=== PATIENT | female | born 2000 | race Caucasian/White ===

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

== ENCOUNTER → 2022-03-22 | Emergency (ER) | payer OTHER ==
[~2022-03-22] VITALS: Ht 167.6 cm; Wt 77.0 kg
[~2022-03-22] MED LIST changes: +PRENATA3 PO; +TAM75CAP PO; +ZOFRAN4 MG/TAB PO
[2022-03-22 23:30] VITALS: BP 96/58
== END | disposition home or self-care (01) ==
LOC: ED 21:46
DX: J10.1 Influenza due to other identified influenza virus with other respiratory manifestations (principal)

== ENCOUNTER 2022-04-20 16:51 | Emergency (ER) | payer OTHER ==
[~2022-04-20] VITALS: Ht 167.6 cm; Wt 77.1 kg
[2022-04-20 18:24] LABS: URINE BILIRUBIN - DIPSTICK NEGATIVE (NEGATIVE); URINE BLOOD DIPSTICK LARGE (NEGATIVE); URINE COLOR YELLOW; URINE GLUCOSE - DIPSTICK NEGATIVE (NEGATIVE); URINE KETONE NEGATIVE (NEGATIVE); URINE PH 5.5 (4.5-8.0); URINE PROTEIN - DIPSTICK 100 mg/dL (NEG-TRACE); URINE SPECIFIC GRAVITY >=1.030; URINE UROBILINOGEN - DIPSTICK 0.2 E.U./dL (0.2)
[2022-04-20 18:26] LABS: URINE LEUK ESTERASE MODERATE (NEGATIVE); URINE NITRITE - DIPSTICK NEGATIVE (Negative)
[2022-04-20 18:27] LABS: URINE SQUAMOUS EPITHELIAL CELL FEW EPI/hpf (0-FEW); URINE WBC >100 WBC/hpf (0-5)
[2022-04-20 18:27] LABS: BASO% 0.3 % (0-3); EOS% 1.6 % (0-8); HEMATOCRIT 40.1 % (37.0-47.0); HEMOGLOBIN 13.6 g/dl (12.0-16.0); IMMATURE GRANULOCYTES 0.2 % (0.0-5.0); MEAN CELL VOLUME 89.9 fL CALC (80.0-100.0); MEAN CORPUSCULAR HGB 30.5 pG CALC (26.0-32.0); MEAN CORPUSCULAR HGB CONC 33.9 g/dL CAL (32.0-36.0); MONO% 6.1 % (2-13); NEUT# 9.33 thou/uL (2.00-7.15); NEUT% 80.8 % (42-76); RED BLOOD COUNT 4.46 mill/uL (4.20-5.60); RED CELL DISTRI WIDTH 12.2 % (11.5-15.5)
[2022-04-20 19:05] LABS: BUN 6 mg/dL (8-21); BUN/CREATININE RATIO 9 (12-20 (CALC)); CARBON DIOXIDE 26 mmol/l (22-30); CHLORIDE 107 mmol/l (95-108); CREATININE 0.7 mg/dL (0.5-1.0); GFR FOR AFR.AMER. > 60 ML/MIN (>=60 (CALC)); GFR OTHER RACES > 60 ML/MIN (>=60 (CALC)); POTASSIUM 3.7 mmol/l (3.5-5.1); SGOT/AST 36 u/l (14-36); TOTAL PROTEIN 7.4 g/dL (6.3-8.2)
[2022-04-20 19:08] LABS: ALBUMIN 4.7 g/dL (3.2-5.0); ALKALINE PHOSPHATASE 85 u/l (38-126); ANION GAP 13 (6-22 (CALC)); BILIRUBIN, TOTAL 0.3 mg/dL (0.0-1.4); SODIUM 142 mmol/l (137-146)
[2022-04-20] MEDS ORDERED: KEFLEX500 MG PO (20:52)
[2022-04-20 20:57] VITALS: BP 110/79
== END 2022-04-20 20:59 | disposition home or self-care (01) ==
LOC: ED 16:51
PROVIDERS: Nurse Practitioner
DX: N93.9 Abnormal uterine and vaginal bleeding, unspecified (principal); N39.0 Urinary tract infection, site not specified